=== PATIENT | male | born 2000 | race Caucasian/White ===

== ENCOUNTER 2022-10-26 19:35 | Emergency (ER) | payer OTHER | END 2022-10-26 22:34 | disposition home or self-care (01) | LOC: ERS 19:35 | DX: S00.03XA Contusion of scalp, initial encounter (principal); S09.90XA Unspecified injury of head, initial encounter; F07.81 Postconcussional syndrome; W22.03XA Walked into furniture, initial encounter | CPT/HCPCS: 70450; 72125 ==

== ENCOUNTER 2023-07-12 13:18 | Outpatient (CLI) | payer OTHER | END 2023-07-12 13:19 | disposition home or self-care (01) | LOC: BICRAD 13:18 | DX: N20.0 Calculus of kidney (principal) | CPT/HCPCS: 74018 ==